=== PATIENT | female | born 2000 | race Caucasian/White ===

== ENCOUNTER 2020-04-09 13:48 | Emergency (ER) | payer OTHER, SELFPAY ==
[2020-04-09 13:56] VITALS: BP 148/84; PULSE 91; RESP 14; TEMP 37.3; O2SAT 100
--- NOTE | 2020-04-09 14:47 | ED.GENADULT ---
HPI - General Adult General Chief complaint: Dental/Oral Stated complaint: tooth pain/swollen face Time Seen by Provider: 04/09/20 14:45 Source: patient and RN notes reviewed Mode of arrival: ambulatory Limitations: other (intellectual disability) History of Present Illness HPI narrative: 19-year-old female presents with complaints of right upper dental pain for the past 2-3 days. Tylenol (last today at 11 AM) and Ibuprofen (last on 04/08/2020) without relief. Denies any drainage. No fever. Jaw swelling. No neck swelling. No limitation with speaking or swallowing. Has history of dental caries. Has not seen a dentist recently. No dental trauma. No oral lesions. Exacerbating factors consist of eating and drinking cold items. No relieving factors. No dentures or bridges. Tolerating liquids well. LMP 03/19/20. Remains active. The patient reports she have not been diagnosed with COVID-19. The patient reports she is not waiting for the results of a COVID-19 lab test. The patient reports she do not have fever, chills, weakness, or fatigue. The patient reports she do not have a new or worsening cough or shortness of breath. Denies chest pain. The patient reports she do not have any rhinorrhea, congestion, sore throat, loss of taste, nausea, vomiting, abdominal pain, and diarrhea. Tolerating po intake well. Denies recent traveling. Denies concerns for COVID-19 or exposures been home with limited outdoor exposure except for essential household needs and return home. At this time, patient is not suspected of having COVID-19. Some parts of this dictation were generated by voice recognition software and may contain typographical and/or grammatical inaccuracies. Related Data Home Medications Medication Instructions Recorded Confirmed albuterol 90 mcg INHALATION Q6H PRN 04/09/20 04/09/20 Allergies Allergy/AdvReac Type Severity Reaction Status Date / Time No Known Allergies Allergy Verified 04/09/20 14:05 Review of Systems Review of Systems: Narrative: CONSTITUTIONAL: Denies fever, chills, sweats. EYES: Denies visual changes, redness, discharge. ENT: Denies rhinorrhea, congestion, sore throat, otalgia. Complains of RT upper dental pain. CARDIOVASCULAR: Denies chest pain, palpitations, edema. RESPIRATORY: Denies dyspnea, wheezing, cough. GASTROINTESTINAL: Denies abdominal pain, nausea, vomiting, diarrhea. SKIN: Denies rash or itching. MUSCULOSKELETAL: Denies acute back pain, joint pain, or myalgia. NEUROLOGIC: Denies numbness or focal weakness. PSYCHIATRIC: Denies anxiety or depression. All systems reviewed & are unremarkable except as noted in HPI and below. [facility] Past Medical History Medical History (Updated 04/09/20 @ 15:22 by GUCCI Osuna) Asthma Intellectual disability Surgical History Surgical History (Updated 04/09/20 @ 14:57 by GUCCI Osuna) History of tympanostomy Family History Family History (Updated 04/09/20 @ 14:58 by GUCCI Osuna) Father Unknown family medical history Mother Alive and well Social History Social History (Updated 04/09/20 @ 14:59 by GUCCI Osuna) Smoking status: Never smoker Tobacco type: cigarettes Alcohol intake: never Substance use: never Living arrangements: with family Occupation/Education: unemployed Gender identity (if verbalized by the patient): Female Comments At time of signature, agree with nurse past medical, surgical, social, and family history. There is no relevant family history pertinent to the presenting complaint. Exam Narrative: Exam Narrative: GENERAL: This is a well-nourished, well-developed patient, in no apparent distress. Talks in full sentences ans ambulates with steady gait without dyspnea. HEAD: normocephalic, atraumatic. EYES: PERRL. Sclera clear/white. Vision is grossly intact. EARS: External ears normal, auditory canals clear and without drainage, TMs normal without pe
== END 2020-04-09 15:11 | disposition home or self-care (01) ==
PROVIDERS: Emergency Provider Nurse Practitioner Family
DX: K02.9 Dental caries, unspecified (principal); K04.7 Periapical abscess without sinus; J45.909 Unspecified asthma, uncomplicated; F79 Unspecified intellectual disabilities
CPT/HCPCS: 99213; G0463